=== PATIENT | female | born 1985 | race Caucasian/White ===

== ENCOUNTER 2018-09-24 14:47 | Emergency (ER) | payer OTHER, SELFPAY ==
[2018-09-24 14:48] VITALS: BP 112/57; PULSE 89; RESP 16; TEMP 36.9; O2SAT 99; BMI 19.0
--- NOTE | 2018-09-24 15:10 | RAD_ITS ---
STUDY: X-RAY CHEST REASON FOR EXAM: Female, 33 years old. Cough, pleuritic chest pain. TECHNIQUE: Frontal and lateral views of the chest. COMPARISON: None. FINDINGS: The lungs are clear and expanded. There is no demonstrated pleural abnormality. Normal size heart. Normal mediastinum and maria elena. Normal visualized pulmonary arteries. Normal visualized aortic arch and descending thoracic aorta. Normal visualized thoracic spine. Normal visualized ribs, clavicles, and shoulders. There is no demonstrated abnormality of the visualized soft tissue structures of the upper abdomen. RAD/Chest PA and Lateral IMPRESSION: Normal x-ray examination of the chest. Electronically Signed: Rajendra Goldberg MD at 16:13 EDT , Service support ,
--- NOTE | 2018-09-24 15:16 | ED.DCSUM_ITS ---
History of Present Illness Chief Complaint: Cough Detail of Chief Complaint: Diagnosed with influenza 2 weeks ago Informant: Patient Onset: Days Timing: Intermittent Quality: Cough is worse and now painful Location: Left side midclavicular line to posterior axillary line Current Severity: Mild Maximum Severity: Moderate Worsened by: Breathing and coughing Relieved by: Nothing Associated Symptoms: Worsening cough Narrative: Patient is a healthy 33-year-old non-smoker presents with worsening cough and pleuritic chest pain on the left side. The cough is nonproductive. She denies fever or chills. She denies nasal congestion, earache sore throat. She denies history of PE or DVT. She is on no hormonal therapy. No recent prolonged trip. No risk factors for PE or DVT. Patient denies trauma. Patient has no GI symptoms. Prior similar symptoms: Yes Recent Illness/Hospitalization: Yes - Diagnosed with influenza 2 weeks ago Past Medical History - Allergies and Home Meds Allergies/Adverse Reactions: Allergies No Known Allergies Allergy (Verified 09/24/18 14:50) Primary Care Physician: Khang Bolanos MD [Primary Care Provider] - Prior records reviewed: Yes Lives: Spouse/ Significant Other Smoking Status: Never smoker Drugs: None Review of Systems General: Denies: Chills, Fever, Sweats Eyes: Denies: Visual changes - bilaterally, Diplopia ENT: Denies: Rhinorrhea, Sore throat Cardiovascular: Reports: Chest pain - Pleuritic chest pain left side as prev iously discussed described. Denies: Palpitations, Heart racing Respiratory: Reports: Cough. Denies: Dyspnea, Sputum, Dyspnea on exertion Gastrointestinal: Denies: Abdominal pain, Nausea, Vomiting, Diarrhea, Melena, Hematochezia Genitourinary: Denies: Dysuria, Hematuria, Frequency Musculoskeletal: Denies: Myalgias, Arthralgias, Back pain, Extremity Pain Skin: Denies: Rash, Wounds Neurological: Denies: Headache, Weakness, Numbness Physical Exam Vital Signs/Narrative: Vital Signs Temp Pulse Resp BP Pulse Ox 09/24/18 14:48 98.4 F 89 16 112/57 L 99 Inital Vital Signs reviewed: Yes General: Well nourished, Well developed, No Acute Distress Head: Normocephalic, Atraumatic Eyes: Perrl, EOMI ENT: Moist mucous membranes, No rhinorrhea Neck: Supple, Nontender Cardiovascular: Regular rate, Regular rhythm, No murmurs Respiratory: No distress, CTA bilaterally, Chest nontender, - - Friction rub noted left side midclavicular line to posterior axillary line left fifth, sixth seventh and eighth rib region. There was no increased vocal fremitus. There was no egophony. Abdomen: Soft, Nontender, Nondistended, Normal bowel sounds, No masses Back: Nontender, Normal Inspection. Negative for: CVA tenderness Skin: Normal color, No rash Neurological: Alert, Oriented x3, Cranial nerves II-XII grossly intact, Normal Strength, Normal Sensation Psychological: Normal affect, Normal Mood Diagnostic/Tx/Re-eval Chest X-Ray - ED: 2 View, Normal, Heart, Lungs, Mediastinum, Bony Structures, No Acute Disease - Medical Decision Making Suspect patient has pleurisy. Because patient reports worsening cough and there is a friction rub will obtain chest x-ray to evaluate for pneumonia. She is not febrile, tachycardic or hypoxic. ED Disposition - Plan for ED Patient: Disposition: Home or Assisted Living Diagnosis: Pleuritic chest pain Instructions: ED Chest Pain Pleurisy Referrals: Khang Bolanos MD [Primary Care Provider] - 1 Week if not improving Additional Instructions: Take either 4 Advil every 8 hours for the next 5 days or 2 Aleve every 12 hours for the next 5 days. You should experience significant improvement within the next 24-48 hours.
[2018-09-24 15:36] VITALS: BP 110/62; PULSE 86; RESP 16; O2SAT 98
== END 2018-09-24 15:38 | disposition home or self-care (01) ==
PROVIDERS: Emergency Provider Emergency Medicine; Family Provider Family Medicine; PCP Family Medicine
DX: R07.81 Pleurodynia (principal); R05 Cough
CPT/HCPCS: 71046; 99282